=== PATIENT | female | born 1955 | race Caucasian/White ===

== ENCOUNTER 2019-02-01 14:19 | Emergency (ER) | payer SELFPAY | END 2019-02-01 16:26 | LOC: ER 16:13 | DX: R69 Illness, unspecified (principal) ==

== ENCOUNTER 2019-02-01 15:19 | Emergency (ER) | payer SELFPAY | END 2019-02-01 16:26 | LOC: ER 16:13 | DX: R69 Illness, unspecified (principal) ==